=== PATIENT | female | born 2000 | race Caucasian/White ===

== ENCOUNTER 2023-01-14 09:45 | Outpatient (OUT) | payer OTHER, SELFPAY | END 2023-01-14 09:46 | disposition home or self-care (01) | LOC: VC 09:49 | PROVIDERS: PCP Radiology Diagnostic Radiology; Visit Provider Radiology Diagnostic Radiology | DX: Z13.9 Encounter for screening, unspecified (principal) ==

== ENCOUNTER 2024-01-03 11:36 | Outpatient (OUT) | payer OTHER, SELFPAY ==
[2024-01-06 15:09] LABS: Deamidated Gliadin Abs, IgA 6 units (0-19); Deamidated Gliadin Abs, IgG 3 units (0-19); Endomysial Antibody IgA Negative (Negative); Immunoglobulin A, Qn, Serum 222 mg/dL (87-352); t-Transglutaminase (tTG) IgA <2 U/mL (0-3); t-Transglutaminase (tTG) IgG 3 U/mL (0-5)
== END 2024-01-03 11:37 | disposition home or self-care (01) ==
LOC: LAB 11:40
PROVIDERS: PCP Family Medicine; Visit Provider Internal Medicine Gastroenterology
DX: K59.00 Constipation, unspecified (principal)
CPT/HCPCS: 36415; 82784; 86231; 86258; 86364